=== PATIENT | male | born 1995 | race Caucasian/White ===

== ENCOUNTER → 2017-09-26 | Outpatient (CLI) | payer OTHER ==
--- NOTE | 2017-09-26 15:36 | RADIOLOGY REPORT (SQ) ---
EXAM DESCRIPTION: MRI RT UPPER EXTREMITY COMBO COMPLETED DATE/TIME: 09/26/2017 11:04 am REASON FOR STUDY: PAIN IN RIGHT WRIST (M25.531) M25.531 PAIN IN RIGHT WRIST COMPARISON: CT right wrist 09/20/2017, [facility] Right wrist radiographs 09/26/2017, [facility] TECHNIQUE: Right wrist images acquired and stored on PACS. Multiplanar images include fat sensitive sequences as T1, fluid sensitive sequences as FST2/STIR, cartilage sensitive sequences as FSPD, grad ient echo sequences. Post-contrast axial coronal and sagittal images were obtained, with fat sat T1 weighted sequencing. Patient was injected with 15 mL of IV ProHance gadolinium. LIMITATIONS: None. FINDINGS: The patient has a nonunited scaphoid fracture on the outside CT and plain radiographs. Th ere is some segmentation of the distal half of the scaphoid bone near the fracture line on these outs qing studies. Today's exam demonstrates that the proximal half of the scaphoid bone exhibits mostly normal T1 marro w signal, stir marrow signal suggesting against avascular necrosis. There is minimal contrast enhanc ement in the proximal pole scaphoid bone adjacent to the fracture site. The distal scaphoid fracture fragment exhibit mottled decreased T1 signal, increased STIR signal with contrast enhancement. This likely indicates ischemic bone. Avascular necrosis would have dark STIR signal. There is a persistent fracture line evident on sagittal image 6. There is contrast enhancement within the fracture itself, and along the soft tissues surrounding the scaphoid bone. No widening of the scapholunate interval or abnormality of the alignment at the scaphotrapezium joint . BONE MARROW: As above CARPAL ALIGNMENT AND ARTICULATION: Normal congruity of sigmoid notch at level of distal RUJ without p ositive or negative ulnar variance. Normal capitolunate angle. No widening of scapholunate articulati on. EFFUSION: None noted. SCAPHOLUNATE LIGAMENT: Grossly intact LUNATE-TRIQUETRAL LIGAMENT: Intact without tear. TFC COMPLEX: Radial and ulnar attachments normal. Meniscus intact. Extensor carpi ulnaris tendon norm al without tendinopathy. EXTRINSIC LIGAMENTS AND DISTAL RADIO-ULNAR JOINT: Dorsal and volar distal RUJ intact without subluxat ion of the distal ulna. 1-6 EXTENSOR COMPARTMENTS: Normal. Specifically no tendinopathy of the abductor pollicis longus or ex tensor pollicis brevis to suggest de Quervain's Syndrome. CARPAL TUNNEL AND MEDIAN NERVE: Normal volume and morphology of the carpal tunnel proximally at the l evel of the radiocarpal joint and distally at the hook of the hamate. No thickening or signal alterat ion of the median nerve. OTHER: No other significant finding. IMPRESSION: Nonunited scaphoid fracture. No MR evidence of avascular necrosis in the proximal half of the scaphoid bone. Edema and enhancement in the distal half of the scaphoid bone, could indicate ischemic change COMMENT: AJR:195:jul 2010 Radiology;260:808-816 Skeletal Radiology;43(12):1809-4246 TECHNICAL DOCUMENTATION: JOB ID: [id number] [employer]- All Rights Reserved
== END ==
LOC: RAD 09:53
PROVIDERS: ATTEND Orthopaedic Surgery
DX: M25.531 Pain in right wrist (principal); S62.001K Unspecified fracture of navicular [scaphoid] bone of right wrist, subsequent encounter for fracture with nonunion
CPT/HCPCS: 73220; A9576

== ENCOUNTER 2017-12-17 11:36 | Day surgery (SDC) | payer OTHER ==
[2017-12-10 10:45] LABS: APPEARANCE,URINE CLEAR; BILIRUBIN,URINE NEGATIVE (NEGATIVE); COLOR,URINE STRAW; GLUCOSE, URINE NEGATIVE (NEGATIVE); KETONES,URINE NEGATIVE (NEGATIVE); LEUKOCYTE ESTERASE,URINE NEGATIVE (NEGATIVE); NITRITE,URINE NEGATIVE (NEGATIVE); PROTEIN,URINE NEGATIVE (NEGATIVE); URINE SPECIFIC GRAVITY 1.006; UROBILINOGEN,URINE NEGATIVE mg/dL (<2.0)
[2017-12-10 10:46] LABS: ABSOLUTE EOSINOPHILS # (AUTO) 0.1 10^3/uL (0.0-0.6); ABSOLUTE LYMPHOCYTES (AUTO) 1.1 10^3/uL (0.5-4.7); ABSOLUTE MONOCYTES (AUTO) 0.4 10^3/uL (0.1-1.4); ABSOLUTE NEUT (AUTO) 3.6 10^3/uL (1.7-8.2); BASOPHILS % (AUTO) 0.3 % (0-2); EOSINOPHILS % (AUTO) 1.2 % (0-6); HEMATOCRIT 46.5 % (37.9-51.0); HEMOGLOBIN 15.5 g/dL (13.5-17.0); LYMPHOCYTES % (AUTO) 20.6 % (13-45); MEAN CORPUSCULAR HEMOGLOBIN 29.4 pg (27.0-33.4); MEAN CORPUSCULAR HGB CONC 33.4 g/dL (32.0-36.0); MEAN CORPUSCULAR VOLUME 88 fl (80-97); MONOCYTES % (AUTO) 8.1 % (3-13); PLATELET COUNT 173 10^3/uL (150-450); RED BLOOD COUNT 5.28 10^6/uL (4.35-5.55); RED CELL DISTRIBUTION WIDTH 13.3 % (11.5-14.0); SEGMENTED NEUTROPHILS % (AUTO) 69.8 % (42-78); TOTAL CELLS COUNTED % (AUTO) 100 %; WHITE BLOOD COUNT 5.1 10^3/uL (4.0-10.5)
[2017-12-10 11:11] LABS: BLOOD UREA NITROGEN 15 mg/dL (7-20); CALCIUM 10.1 mg/dL (8.4-10.2); CARBON DIOXIDE 27 mmol/L (22-30); GLUCOSE 88 mg/dL (75-110); POTASSIUM 4.7 mmol/L (3.6-5.0); SODIUM 141.9 mmol/L (137-145)
[2017-12-10 11:13] LABS: ANION GAP 13 (5-19); CHLORIDE 102 mmol/L (98-107)
[~2017-12-17 11:36] MED LIST: BUPIVACAINE HCL 0.5 % INJ/PF 30 ML SDV ONE; CEFAZOLIN 2 GM/D5W RTU 2 GM/50 ML RTUPB IV SCH; LACTATED RINGERS 1000 ML IV PRN; LIDOCAINE 0.5% INJ-PF (5 MG/ML) 50 ML SDV SUBCUT PRN
[2017-12-17] MEDS ORDERED: NEOSTIGMINE METHYLSULFATE 10 MG/10 ML VIAL ONE (12:10)
[2017-12-17] MEDS ORDERED: SUCCINYLCHOLINE CHLORIDE INJ 200 MG/10 ML VIAL ONE (12:10)
[2017-12-17] MEDS ORDERED: VECURONIUM BROMIDE INJ 10 MG VIAL IV ONE (12:10)
[2017-12-17] MEDS ORDERED: GLYCOPYRROLATE INJ 0.4 MG/2 ML VIAL ONE (12:10)
[2017-12-17] MEDS ORDERED: FENTANYL CITRATE INJ/PF 100 MCG/2 ML AMPUL ONE ×2 (12:54→16:42)
[2017-12-17] MEDS ORDERED: LIDOCAINE 2% INJ-PF (20 MG/ML) 10 ML AMPUL ONE (12:54)
[2017-12-17] MEDS ORDERED: DEXAMETHASONE SOD PHOSPHATE INJ 4 MG/1 ML VIAL ONE (12:55)
[2017-12-17] MEDS ORDERED: PROPOFOL INJ 200 MG/20 ML VIAL IV ONE (12:55)
[2017-12-17] MEDS ORDERED: ACETAMINOPHEN 100 ML IV ONE (12:55)
[2017-12-17] MEDS ORDERED: MIDAZOLAM 2 MG/2 ML INJ ONE (12:55)
[2017-12-17] MEDS ORDERED: ONDANSETRON HCL INJ/PF 4 MG/2 ML SDV ONE (12:55)
[2017-12-17] MEDS ORDERED: OXYCODONE-ACETAMINOPHEN 5-325 MG TABLET PO PRN (15:58)
[2017-12-17] MEDS ORDERED: MORPHINE SULFATE 10 MG/ML INJ IV PRN (15:58)
[2017-12-17] MEDS ORDERED: ONDANSETRON HCL INJ/PF 4 MG/2 ML SDV IV PRN (15:58)
[2017-12-17] MEDS ORDERED: RINGERS SOLUTION,LACTATED 1,000 ML IV PRN (15:58)
--- NOTE | 2017-12-17 16:30 | Discharge Summary ---
Discharge Summary (SDC) - Discharge Final Diagnosis: Right scaphoid nonunion Date of Surgery: 12/17/17 Discharge Date: 12/17/17 Condition: Good Treatment or Instructions: Schedule Follow Up w/ Dr. Johnny Bae @ [facility] for Surgery to be seen in 10-14 days or as scheduled [place]: Cord: [place]: Ice and elevate Keep splint clean/dry/intact. If your fingers become numb please unwrap the [place] wrap but leave the splint in place, if the sensation does not return within 30 minutes please return to the emergency department. May begin finger range of motion attempting to make full fist. Please use ibuprofen (Motrin or Advil) 600-800 mg every 8 hours as needed for pain or fever DO NOT TAKE w/ TORADOL may use once TORADOL complete. You may also use acetaminophen (Tylenol) 1000 mg every 4-6 hours as needed for pain or fever. Please be aware that many medications contain acetaminophen, do not exceed a total of 1000 mg of acetaminophen every 6 hours. If ibuprofen and acetaminophen are not sufficient for your pain you may take the Percocet/[place]. Please be aware that the Percocet/[place] does contain Tylenol. Stool softener of choice when on pain medication. Prescriptions: Oxycodone HCl/Acetaminophen [Percocet 7.5-325 mg Tablet] 1 - 2 tab PO ASDIR PRN #45 tab PRN Reason: Discharge Diet: As Tolerated Respiratory Treatments at Home: Deep Breathing/Coughing Discharge Activity: No Lifting Over 10 Pounds, No Lifting/Push/Pulling Report the Following to Your Physician Immediately: Fever over 101 Degrees, Unusual Bleeding, Redness, Swelling, Warmth, Increased Soreness
--- NOTE | 2017-12-17 16:32 | RADIOLOGY REPORT (SQ) ---
EXAM DESCRIPTION: WRIST RIGHT 2 VIEWS; NO CHG FLUORO COMPLETED DATE/TIME: 12/17/2017 4:23 pm REASON FOR STUDY: ORIF RIGHT SCAPHOID S62.021K DISP FX OF MID 3RD OF NAVIC BONE OF R WRS, 7THK COMPARISON: None. FLUOROSCOPY TIME: 2 minutes 48 seconds 5 images saved to PACS. TECHNIQUE: Intra-operative images acquired during surgical procedure to evaluate progress. NUMBER OF IMAGES: 5 LIMITATIONS: None. FINDINGS: Orthopedic screw fixation of scaphoid fracture. Alignment is anatomic. IMPRESSION: IMAGE(S) OBTAINED DURING PROCEDURE. COMMENT: Quality ID 145: Final reports for procedures using fluoroscopy that document radiation exp osure indices, or exposure time and number of fluorographic images (if radiation exposure indices are not available) Please consult full operative report of the attending physician for description of the procedure. TECHNICAL DOCUMENTATION: JOB ID: [id number] [employer]- All Rights Reserved Reading location - IP/workstation name: [facility]-[email or web address]
--- NOTE | 2017-12-17 16:32 | RADIOLOGY REPORT (SQ) ---
EXAM DESCRIPTION: WRIST RIGHT 2 VIEWS; NO CHG FLUORO COMPLETED DATE/TIME: 12/17/2017 4:23 pm REASON FOR STUDY: ORIF RIGHT SCAPHOID S62.021K DISP FX OF MID 3RD OF NAVIC BONE OF R WRS, 7THK COMPARISON: None. FLUOROSCOPY TIME: 2 minutes 48 seconds 5 images saved to PACS. TECHNIQUE: Intra-operative images acquired during surgical procedure to evaluate progress. NUMBER OF IMAGES: 5 LIMITATIONS: None. FINDINGS: Orthopedic screw fixation of scaphoid fracture. Alignment is anatomic. IMPRESSION: IMAGE(S) OBTAINED DURING PROCEDURE. COMMENT: Quality ID 145: Final reports for procedures using fluoroscopy that document radiation exp osure indices, or exposure time and number of fluorographic images (if radiation exposure indices are not available) Please consult full operative report of the attending physician for description of the procedure. TECHNICAL DOCUMENTATION: JOB ID: [id number] [employer]- All Rights Reserved Reading location - IP/workstation name: [email or web address]
--- NOTE | 2017-12-17 16:41 | Operative Report ---
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 Patient had notable pain which initially improved but his pain return return. He subsequently had radiographs which demonstrated scaphoid nonunion. He was sent to sc for further evaluation and treatment. Risks and benefits of operative versus nonoperative intervention were explained to the patient verbalized understanding consented for the procedure. Procedure In Detail: Patient was seen and evaluated in the preoperative holding area. The RIGHT upper extremity was initialized and marked. Patient received 2g of Ancef IV for bacterial prophylaxis. Patient was taken back to the operative room where transferred to the operative table and placed under general anesthesia. Once they were adequately anesthetized a nonsterile tourniquet was placed on the upper extremity. A surgical team debriefing was performed ensuring all instrumentation was available, the surgical procedure was discussed with possible concerns reviewed. The upper extremity was prepped with chlorhexidine and alcohol and draped in a sterile fashion. A timeout was done identifying correct patient, procedure and extremity everyone in attendance agree with this and verbalized no concerns. The extremity was elevated and the tourniquet was inflated to 250 mmHg. Curvilinear skin incision was made extending from the volar scaphoid tubercle over the FCR sheath. The palmar cutaneous branch of the median nerve was identified at its interval between the palmaris longus and FCR this was tagged with a vessel loop and protected. The floor of the FCR sheath was then incised. The scaphoid nonunion was identified after partial release of the RSC ligament which would be later repaired at the completion of the case. Nonunion demonstrates cystic changes with evidence of fragmentation. The nonunion site was then prepared with a curette and rongeur to normal-appearing bleeding tissue. Once adequate debridement was performed to proceed with fixation. First the wrist was volar flexed to correct the compact deformity a 0.045 K wire was placed on oscillation from the distal radius into the proximal pole of the scaphoid holding reduction of the proximal fragment. The wrist was then placed on a bump and hyperextended and a K wire was placed along the volar aspect of the scaphoid obtaining correction of the humpback deformity. Lastly a K wire for a mini Acutrak screw was placed in a slightly dorsal-central position to accommodate for bone grafting. C-arm fluoroscopy was obtained confirming adequate reduction of the humpback deformity and placement of the scaphoid K wires. Once this was complete I turned my attention to harvesting the bone graft. With the help of C-arm fluoroscopy the appropriate placement for harvest of the autograft bone graft was determined placing a 25-gauge needle in the radiolunate joint and sigmoid notch to avoid disruption. I then measured the defect which was 10 x 10 at the scaphoid. Thus the appropriate cortical cancellus bone graft was measured and marked with K wires. C-arm fluoroscopy was obtained confirming appropriate harvest site. Pronator quadratus was then cut to accommodate the bone graft. The margins of the bone graft was drilled with a 0.045 K wire and completed with a osteotome. The wound copiously irrigated with normal saline. Tourniquet was deflated. Any peripheral bleeding was controlled with bipolar cautery. After 15 minutes the tourniquet was reinsufflated. The defect within the distal radius was filled with cancellus autograft chips until adequately filled. The bone graft was then placed on the scaphoid both K wires were reversed and then advanced once the bone graft was secured into position. The volar K wire adequately fixated the graft to avoid extrusion. The dorsal-central K wire was then drilled and a 22 mm mini Acutrak screw was placed obtaining excellent compression of the bone graft and scaphoid. No residual defects were appreciated. C-arm fluoroscopy was obtained to ensure adequate placement of the scaphoid screw. Under direct visualization screw was countersunk below the articular surface of the STT joint. Final C-arm radiographs demonstrated church of scaphoid height out evidence of residual humpback deformity. I then cut the volar K wire below the skin which will be removed 6 weeks postoperatively. The RSC ligament was closed with interrupted 3-0 Vicryl suture. A portion of the FCR floor was closed with 3-0 Monocryl suture. Subcutaneous tissues were closed with 3-0 Monocryl suture. Skin was closed with a running subcuticular 4- 0 Monocryl reinforced with Dermabond and Steri-Strips. 30 cc of 0.5% Marcaine without epinephrine was injected for postoperative pain control. Tourniquet was inflated. Patient had good perfusion. Patient was placed in a thumb spica splint in neutral position. Sponge counts, instrument counts, needle counts counts were correct. Patient was then awoken from anesthesia. Transferred from the operating room table to the operating room stretcher. There was no intraoperative complications patient tolerated procedure well stable to PACU. Postoperative plan: Patient will follow-up the office in 2 weeks at which point we will obtain radiographs and transition him to a thumb spica cast. We will continue thumb spica cast for an additional [address] scan 8 weeks postoperatively. Findings of CT scan will determine postoperative rehabilitation.
[2017-12-17] MEDS ORDERED: FENTANYL CITRATE INJ/PF 100 MCG/2 ML AMPUL IV PRN ×3 (17:35)
[2017-12-17] MEDS ORDERED: DIPHENHYDRAMINE HCL 50 MG/ML VIAL IV PRN (17:35)
[2017-12-17] MEDS ORDERED: PROMETHAZINE HCL INJ 25 MG/1 ML VIAL IV PRN (17:35)
[2017-12-17] MEDS ORDERED: MEPERIDINE HCL/PF INJ 25 MG/1 ML DISP.SYRIN IV PRN (17:35)
[2017-12-17 18:35] VITALS: BP 114/63
== END 2017-12-17 18:30 | disposition home or self-care (01) ==
LOC: OROUT 11:36
PROVIDERS: ATTEND Orthopaedic Surgery
PROC: 0PUM07Z Supplement Right Carpal with Autologous Tissue Substitute, Open Approach (ICD-10-PCS; 2017-12-17)
PROC: 0PSM04Z Reposition Right Carpal with Internal Fixation Device, Open Approach (ICD-10-PCS; principal; 2017-12-17 13:45)
DX: S62.021K Displaced fracture of middle third of navicular [scaphoid] bone of right wrist, subsequent encounter for fracture with nonunion (principal); X58.XXXD Exposure to other specified factors, subsequent encounter; M25.531 Pain in right wrist
CPT/HCPCS: 01830; 36415; 80048; 81001; 85025; C1769; J0131; J0330; J0690; J1100; J2250; J2405; J2704; J3010; J3490

== ENCOUNTER 2017-12-18 13:20 | Emergency (ER) | payer OTHER ==
[2017-12-18 13:30] VITALS: BP 136/81
--- NOTE | 2017-12-18 14:02 | ER Document Report ---
ED General - General Chief Complaint: Hand Swelling Stated Complaint: POST OP COMPLICATION Time Seen by Provider: 12/18/17 13:56 Mode of Arrival: Ambulatory Information source: Patient Notes: pt had ORIF yesterday. pt complains of "numbness" in right fingers. it is better after losing rabia wrap but still present. thumb is most numb and little finger least. sx's constant. better without pressure, worse with. no radiation. TRAVEL OUTSIDE OF THE [place] IN LAST 30 DAYS: No - Related Data Allergies/Adverse Reactions: No Known Allergies Allergy (Verified 12/18/17 13:21) Past Medical History - General Information source: Patient - Social History Smoking Status: Never Smoker Frequency of alcohol use: Occasional Drug Abuse: None Family History: Reviewed & Not Pertinent Patient has suicidal ideation: No Patient has homicidal ideation: No - Past Medical History Cardiac Medical History: Denies: Hx Coronary Artery Disease, Hx Heart Attack, Hx Hypertension Pulmonary Medical History: Denies: Hx Asthma, Hx Bronchitis, Hx COPD, Hx Pneumonia Neurological Medical History: Denies: Hx Cerebrovascular Accident, Hx Seizures Renal/ Medical History: Denies: Hx Peritoneal Dialysis Musculoskeltal Medical History: Denies Hx Arthritis Past Surgical History: Reports: Hx Orthopedic Surgery - Immunizations Hx Diphtheria, Pertussis, Tetanus Vaccination: - UNSURE Review of Systems - Review of Systems Constitutional: denies: Chills, Fever Cardiovascular: denies: Chest pain, Palpitations Respiratory: denies: Cough, Short of breath Physical Exam - Vital signs Vitals: Temp Pulse Resp BP Pulse Ox 98.5 F 67 18 136/81 H 97 12/18/17 13:28 12/18/17 13:28 12/18/17 13:28 12/18/17 13:28 12/18/17 13:28 Interpretation: Normal - General General appearance: Appears well, Alert In distress: None - Respiratory Respiratory status: No respiratory distress Chest status: Nontender Breath sounds: Normal Chest palpation: Normal - Cardiovascular Rhythm: Regular Heart sounds: Normal auscultation Murmur: No - Neurological Neuro grossly intact: Yes Cognition: Normal Orientation: AAOx4 [place] Coma Scale Eye Opening: Spontaneous [place] Coma Scale Verbal: Oriented David Coma Scale Motor: Obeys Commands [place] Coma Scale Total: 15 Speech: Normal Motor strength normal: LUE, RUE, LLE, RLE Sensory: Altered light touch - Patient has a splint on the right hand. As much as the musculature can be examined in the right hand it appears to be intact. He does have some subjective decrease of sensation on the thumb index and middle fingers. - Psychological Associated symptoms: Normal affect, Normal mood - Skin Skin Temperature: Warm Skin Moisture: Dry Skin Color: Normal Course - Re-evaluation Re-evalutation: 12/18/17 14:[address] Lange who reccomends folow up on saturday with Kathia - Vital Signs Vital signs: Temp Pulse Resp BP Pulse Ox 98.5 F 67 18 136/81 H 97 12/18/17 13:28 12/18/17 13:28 12/18/17 13:28 12/18/17 13:28 12/18/17 13:28 Discharge - Discharge Clinical Impression: Neurapraxia Condition: Stable Disposition: HOME, SELF-CARE Instructions: Numbness or Paresthesia ([facility]) Additional Instructions: Please follow-up with Dr. Jeronimo on Saturday. Referrals: STEVIE JERONIMO DO [ACTIVE STAFF] - Follow up as needed
== END 2017-12-18 14:04 | disposition home or self-care (01) ==
LOC: ER 13:20
DX: T14.8XXA Other injury of unspecified body region, initial encounter (principal); R20.0 Anesthesia of skin; X58.XXXA Exposure to other specified factors, initial encounter
CPT/HCPCS: 99283

== ENCOUNTER → 2018-01-31 | Outpatient (CLI) | payer OTHER ==
--- NOTE | 2018-01-31 11:33 | RADIOLOGY REPORT (SQ) ---
EXAM DESCRIPTION: CT RT UPPER EXTREMITY WITHOUT COMPLETED DATE/TIME: 01/31/2018 11:00 am REASON FOR STUDY: DISPLACED FX OF MIDDLE THIRD OF NAVICULAR SCAPHOID S62.021K DISP FX OF MID 3RD OF NAVIC BONE OF R WRS, 7THK COMPARISON: Fluoro 12/17/2017 MR 09/26/2017 TECHNIQUE: Axial imaging performed through the right wrist with reformatted coronal and sagittal elisabeth ging windowed for bone and soft tissues. Images saved to PACS. 3D IMAGING: Were 3D images as MIP, SSD, or volume rendering performed at the work station? Yes. All CT scanners at this facility use dose modulation, iterative reconstruction, and/or weight based d osing when appropriate to reduce radiation dose to as low as reasonably achievable (ALARA). [facility]: Dose Right [facility]: CareDose [facility]: Dose Right [facility]: Teradose 4D [facility]: Smart Technologies LIMITATIONS: None. RADIATION DOSE: CT Rad equipment meets quality standard of care and radiation dose reduction techniq ues were employed. CTDIvol: 4.5 mGy. DLP: 83 mGy-cm. mGy. FINDINGS: SOFT TISSUES: No obvious swelling or foreign body. BONES: There is an area of sclerosis in the volar aspect of the distal radius with lucency surroundin g it and cortical defects. There is a fracture of the scaphoid with a long screw extending through t he fracture. The alignment appears to be satisfactory. The extent of healing cannot be assessed. MINERALIZATION: Normal. OTHER: No other significant finding. IMPRESSION: 1. Internal fixation of a scaphoid fracture. 2. There appears to be an osteochondral defect in the distal radius. This does not involve the anastasia cular surface. TECHNICAL DOCUMENTATION: JOB ID: [id number] Quality ID # [id number]: Final reports with documentation of one or more dose reduction techniques (e.g., Au tomated exposure control, adjustment of the mA and/or kV according to patient size, use of iterative reconstruction technique) 2010 [employer]- All Rights Reserved Reading location - IP/workstation name: [email or web address]
== END ==
LOC: RAD 10:37
PROVIDERS: ATTEND Orthopaedic Surgery
DX: S62.021K Displaced fracture of middle third of navicular [scaphoid] bone of right wrist, subsequent encounter for fracture with nonunion (principal); X58.XXXD Exposure to other specified factors, subsequent encounter

== ENCOUNTER 2018-09-30 05:41 | Day surgery (SDC) | payer OTHER ==
[2018-09-23 10:34] LABS: HEMATOCRIT 44.6 % (37.9-51.0); HEMOGLOBIN 15.4 g/dL (13.5-17.0); MEAN CORPUSCULAR HEMOGLOBIN 30.2 pg (27.0-33.4); MEAN CORPUSCULAR HGB CONC 34.4 g/dL (32.0-36.0); MEAN CORPUSCULAR VOLUME 88 fl (80-97); PLATELET COUNT 195 10^3/uL (150-450); RED BLOOD COUNT 5.08 10^6/uL (4.35-5.55); RED CELL DISTRIBUTION WIDTH 12.8 % (11.5-14.0); WHITE BLOOD COUNT 5.4 10^3/uL (4.0-10.5)
[2018-09-23 10:51] LABS: APPEARANCE,URINE CLEAR; BILIRUBIN,URINE NEGATIVE (NEGATIVE); COLOR,URINE YELLOW; GLUCOSE, URINE NEGATIVE (NEGATIVE); KETONES,URINE NEGATIVE (NEGATIVE); LEUKOCYTE ESTERASE,URINE NEGATIVE (NEGATIVE); NITRITE,URINE NEGATIVE (NEGATIVE); PROTEIN,URINE NEGATIVE (NEGATIVE); URINE SPECIFIC GRAVITY 1.008; UROBILINOGEN,URINE NEGATIVE mg/dL (<2.0)
[2018-09-23 10:54] LABS: ANION GAP 10 (5-19); BLOOD UREA NITROGEN 12 mg/dL (7-20); CALCIUM 10.4 mg/dL (8.4-10.2); CARBON DIOXIDE 33 mmol/L (22-30); CHLORIDE 100 mmol/L (98-107); GLUCOSE 93 mg/dL (75-110); POTASSIUM 4.5 mmol/L (3.6-5.0); SODIUM 143.4 mmol/L (137-145)
--- NOTE | 2018-09-23 13:12 | EKG REPORT ---
SEVERITY:- NORMAL ECG - SINUS RHYTHM : Confirmed by: Dee Almodovar MD 23-Sep-2018 13:10:54
[~2018-09-30 05:41] MED LIST changes: -BUPIVACAINE HCL 0.5 % INJ/PF 30 ML SDV ONE; +CEFAZOLIN 2 GM/D5W RTU 2 GM/50 ML RTUPB IV ONE; +CEFAZOLIN 2 GM/D5W RTU 2 GM/50 ML RTUPB IV PRN; -CEFAZOLIN 2 GM/D5W RTU 2 GM/50 ML RTUPB IV SCH
[2018-09-30] MEDS ORDERED: LIDOCAINE 2% INJ-PF (20 MG/ML) 10 ML AMPUL ONE (06:20)
[2018-09-30] MEDS ORDERED: FENTANYL CITRATE INJ/PF 100 MCG/2 ML AMPUL ONE (06:20)
[2018-09-30] MEDS ORDERED: PROPOFOL INJ 200 MG/20 ML VIAL IV ONE (06:20)
[2018-09-30] MEDS ORDERED: ONDANSETRON HCL INJ/PF 4 MG/2 ML SDV ONE (06:20)
[2018-09-30] MEDS ORDERED: ACETAMINOPHEN 1,000 MG/100 ML RTUPB IV ONE (06:20)
[2018-09-30] MEDS ORDERED: DEXAMETHASONE SOD PHOSPHATE INJ 4 MG/1 ML VIAL ONE (06:20)
[2018-09-30] MEDS ORDERED: MIDAZOLAM 2 MG/2 ML INJ ONE (06:20)
[2018-09-30] MEDS ORDERED: BUPIVACAINE HCL 0.5 % INJ/PF 30 ML SDV ONE (06:30)
[2018-09-30] MEDS ORDERED: PROMETHAZINE HCL INJ 25 MG/1 ML VIAL IV PRN ×2 (08:07)
[2018-09-30] MEDS ORDERED: MORPHINE SULFATE 10 MG/ML INJ IV PRN ×2 (08:07→09:07)
[2018-09-30] MEDS ORDERED: FENTANYL CITRATE INJ/PF 100 MCG/2 ML AMPUL IV PRN ×3 (08:07)
[2018-09-30] MEDS ORDERED: DIPHENHYDRAMINE HCL 50 MG/ML VIAL IV PRN (08:07)
[2018-09-30] MEDS ORDERED: ONDANSETRON HCL INJ/PF 4 MG/2 ML SDV IV PRN ×2 (08:07→09:07)
[2018-09-30] MEDS ORDERED: MEPERIDINE HCL/PF INJ 25 MG/1 ML DISP.SYRIN IV PRN (08:07)
--- NOTE | 2018-09-30 09:03 | Discharge Summary ---
Discharge Summary (SDC) - Discharge Final Diagnosis: Right scaphoid nonunion Date of Surgery: 09/30/18 Discharge Date: 09/30/18 Condition: Good Treatment or Instructions: Schedule Follow Up w/ Dr. Johnny Bae @ [facility] for Surgery to be seen in 10-14 days or as scheduled Accident: [place]: [place]: May remove dressing on postop day #3, keep incision covered and dry. Ice and elevate May begin finger range of motion attempting to make full fist. Stool softener of choice when on pain medication. Prescriptions: Hydrocodone/Acetaminophen [[place] 5-325 mg Tablet] 1 tab PO Q6 PRN #10 tablet PRN Reason: Discharge Diet: As Tolerated Discharge Activity: No Lifting Over 10 Pounds, No Lifting/Push/Pulling Report the Following to Your Physician Immediately: Fever over 101 Degrees, Unusual Bleeding, Redness, Swelling, Warmth, Increased Soreness
--- NOTE | 2018-09-30 09:06 | Operative Report ---
Operative Report DATE OF SURGERY: 09/30/18 PREOPERATIVE DIAGNOSIS: Painful hardware right wrist status post ORIF scaphoid nonunion POSTOPERATIVE DIAGNOSIS: Same OPERATION: Removal of hardware right wrist SURGEON: STEVIE JERONIMO ANESTHESIA: GA COMPLICATIONS: None ESTIMATED BLOOD LOSS: Minimal PROCEDURE: Indication for above procedure: 22-year-old male who sustained an injury to his right wrist. Patient had radiographs and CT scan demonstrating scaphoid nonunion. Patient underwent open reduction to fixation scaphoid nonunion. Patient had CT scan demonstrating healed fracture of the scaphoid. There was prominence of the scaphoid screw likely causing irritation thus decision was made to proceed with hardware removal. Procedure In Detail: Patient was seen and evaluated in the preoperative holding area. The RIGHT upper extremity was initialized and marked. Patient received 2g of Ancef IV for bacterial prophylaxis. Patient was taken back to the operative room where transferred to the operative table and placed under general anesthesia. Once they were adequately anesthetized a nonsterile tourniquet was placed on the upper extremity. A surgical team debriefing was performed ensuring all instrumentation was available, the surgical procedure was discussed with possible concerns reviewed. The upper extremity was prepped with chlorhexidine and alcohol and draped in a sterile fashion. A timeout was done identifying correct patient, procedure and extremity everyone in attendance agree with this and verbalized no concerns. The extremity was exsanguinated the tourniquet was inflated to 250 mmHg. Volar skin incision was utilized over the scaphoid tubercle. Blunt dissection was performed. Capsule of the CMC joint was opened and the scaphoid screw identified. C-arm fluoroscopy was obtained confirming fracture union. K wire was placed within the scaphoid screw to remove any remaining bone. The screw was then removed in its entirety. A small osteophyte along the volar tubercle was removed there is no evidence of radial styloid impingement. Wound was copiously irrigated with normal saline. The screw track was debrided with a curette. There is no evidence of fracture instability or motion under fluoroscopy. Skin incision was closed with interrupted 4-0 nylon suture. 20 cc of 0.5% bupivacaine without epinephrine was injected for postoperative pain control. Tourniquet was deflated. Patient was placed in a soft dressing. Sponge counts, instrument counts, needle counts were correct. Patient was then awoken from anesthesia. Transferred from the operating room table to the operating room stretcher. There was no intraoperative complications patient tolerated procedure well stable to PACU. Postop plan: Patient followed the office in 2 weeks for suture removal. Will begin range of motion exercises and strengthening as tolerated once the incision has healed.
[2018-09-30] MEDS ORDERED: HYDROCODONE/ACETAMINOPHEN 5-325 MG TABLET PO PRN (09:07)
--- NOTE | 2018-09-30 09:26 | RADIOLOGY REPORT (SQ) ---
EXAM DESCRIPTION: WRIST RIGHT 2 VIEWS; NO CHG FLUORO COMPLETED DATE/TIME: 09/30/2018 9:10 am REASON FOR STUDY: RT WRIST HARDWARE REMOVAL S62.021K DISP FX OF MID 3RD OF NAVIC BONE OF R WRS, 7TH K COMPARISON: MRI right wrist 09/26/2017 caps Operative fluoroscopy right wrist 12/17/2017 CT right wrist 01/31/2018 FLUOROSCOPY TIME: 1 minutes 26 seconds 4 digital radiographic images saved to PACS. TECHNIQUE: Intra-operative images acquired during surgical procedure to evaluate progress. NUMBER OF IMAGES: 4 digital radiographic images LIMITATIONS: None. FINDINGS: Four digital c-arm images demonstrate removal of hardware from the scaphoid bone. Small b one harvest graft donor site distal radial metaphysis. Please see the operative report further detai kishore IMPRESSION: IMAGE(S) OBTAINED DURING PROCEDURE. COMMENT: Quality ID [id number]: Final reports for procedures using fluoroscopy that document radiation exp osure indices, or exposure time and number of fluorographic images (if radiation exposure indices are not available) Please consult full operative report of the attending physician for description of the procedure. TECHNICAL DOCUMENTATION: JOB ID: [id number] [employer]- All Rights Reserved Reading location - IP/workstation name: [email or web address]
--- NOTE | 2018-09-30 09:26 | RADIOLOGY REPORT (SQ) ---
EXAM DESCRIPTION: WRIST RIGHT 2 VIEWS; NO CHG FLUORO COMPLETED DATE/TIME: 09/30/2018 9:10 am REASON FOR STUDY: RT WRIST HARDWARE REMOVAL S62.021K DISP FX OF MID 3RD OF NAVIC BONE OF R WRS, 7TH K COMPARISON: MRI right wrist 09/26/2017 caps Operative fluoroscopy right wrist 12/17/2017 CT right wrist 01/31/2018 FLUOROSCOPY TIME: 1 minutes 26 seconds 4 digital radiographic images saved to PACS. TECHNIQUE: Intra-operative images acquired during surgical procedure to evaluate progress. NUMBER OF IMAGES: 4 digital radiographic images LIMITATIONS: None. FINDINGS: Four digital c-arm images demonstrate removal of hardware from the scaphoid bone. Small b one harvest graft donor site distal radial metaphysis. Please see the operative report further detai kishore IMPRESSION: IMAGE(S) OBTAINED DURING PROCEDURE. COMMENT: Quality ID [id number]: Final reports for procedures using fluoroscopy that document radiation exp osure indices, or exposure time and number of fluorographic images (if radiation exposure indices are not available) Please consult full operative report of the attending physician for description of the procedure. TECHNICAL DOCUMENTATION: JOB ID: [id number] [employer]- All Rights Reserved Reading location - IP/workstation name: [email or web address]
[2018-09-30] MEDS: FENTANYL CITRATE INJ/PF 100 MCG/2 ML AMPUL ONE ×2 (09:30→09:35)
[2018-09-30] MEDS ORDERED: HYDROCODONE/ACETAMINOPHEN 5-325 MG TABLET ONE (10:22)
[2018-09-30 11:34] VITALS: BP 115/68
== END 2018-09-30 11:15 | disposition home or self-care (01) ==
LOC: OROUT 05:41
PROVIDERS: ATTEND Orthopaedic Surgery
DX: T84.84XA Pain due to internal orthopedic prosthetic devices, implants and grafts, initial encounter (principal); Y83.8 Other surgical procedures as the cause of abnormal reaction of the patient, or of later complication, without mention of misadventure at the time of the procedure; S62.021K Displaced fracture of middle third of navicular [scaphoid] bone of right wrist, subsequent encounter for fracture with nonunion; M25.531 Pain in right wrist
CPT/HCPCS: 93005; 36415; 85027; 80048; 81001; 73100; 93010; 20680; C1769; J2250; J3490 ×2; J1100; J3010; J2405; J2704; J0690; J0131; 01830